=== PATIENT | female | born 1990 | race Caucasian/White ===

== ENCOUNTER 2020-06-16 17:57 | Emergency (ER) | payer MEDICAID ==
[~2020-06-16] VITALS: Ht 162.6 cm; Wt 139.3 kg
[2020-06-16] MEDS ORDERED: HYDROCHLOROTHIA25 M2 PO (18:14)
[2020-06-16] MEDS ORDERED: DESYREL150 MG PO (18:14)
[2020-06-16 18:22] LABS: URINE BILIRUBIN NEGATIVE (Negative); URINE BLOOD NEGATIVE (Negative); URINE CLARITY CLEAR; URINE COLOR YELLOW; URINE GLUCOSE-RANDOM NEGATIVE (Negative); URINE KETONES NEGATIVE (Negative); URINE LEUKOCYTES-REFLEX NEGATIVE (Negative); URINE NITRITE-REFLEX NEGATIVE (Negative); URINE PROTEIN NEGATIVE (Negative); URINE UROBILINOGEN 0.2 E.U./dl (0.2-1.0)
[2020-06-16] MEDS ORDERED: FLEXERIL PO (20:55)
[2020-06-16] MEDS ORDERED: IBUPROFEN 800800 M1 PO (20:55)
[2020-06-16] MEDS ORDERED: MEDROLDOSEPACK PO (20:55)
[2020-06-16 21:31] VITALS: BP 150/104
== END 2020-06-16 21:31 | disposition home or self-care (01) ==
LOC: M.ERS 17:57
PROVIDERS: Nurse Practitioner Family
DX: M54.40 Lumbago with sciatica, unspecified side (principal); R30.0 Dysuria; Z79.899 Other long term (current) drug therapy; Z88.6 Allergy status to analgesic agent; Z88.1 Allergy status to other antibiotic agents; Z88.0 Allergy status to penicillin; Z88.8 Allergy status to other drugs, medicaments and biological substances